=== PATIENT | female | born 1935 | race African-American/Black ===

== ENCOUNTER 2018-03-14 18:44 | Inpatient (IN) | payer OTHER ==
[~2018-03-14] VITALS: Ht 165.1 cm; Wt 57.9 kg
--- NOTE | ~2018-03-14 | EKG ---
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 : 1935 Requested By: Hector Giordano Order Number: [id number] MD: Jimenez Sheehan Measurements Intervals [place] Rate: 76 P: 44 WI: 63 QRS: -7 QRSD: 104 T: 40 QT: 394 QTc: 444 Interpretive Statements Sinus rhythm Atrial premature complex Early R-wave progression Compared to ECG 05/19/2016 09:40:37 Atrial premature complex(es) now present Electronically Signed On 03-16-2018 15:25:08 CDT by Jimenez Sheehan [email or web address] <ELECTRONICALLY SIGNED> By: Jimenez Sheehan MD, [facility] 03/16/18 1525 1924 1924 Jimenez Sheehan MD, [facility] /EPI
--- NOTE | ~2018-03-14 | 2DMMODE ---
[facility] [address] [place] [address] 2 D/M-MODE ECHOCARDIOGRAM Name: BEN DOYLE Room #: 218-P [facility] IN .R.#: [id number] Admission: 03/14/18 Attend Phys: Noa Lal MD Discharge: Date of : 37 Date of Service: 03/17/18 1248 Report #: [id number] THIS REPORT FOR: //name// APPROVED REPORT Study performed: 03/17/2018 11:24:23 EXAM: Comprehensive 2D, Doppler, and color-flow Echocardiogram Patient Location: Bedside Room #: 218 Status: routine BSA: 1.63 HR: 47 bpm BP: 159/85 mmHg Other Information Study Quality: Adequate Technically limited study due to inability to position patient. Indications CVA/TIA Hypertension/HDD Echo Enhancing Agent Indication: Rule out Shunt Agent(s) / Amount(s) Used: Agitated Saline 6 cc 2D Dimensions RVDd: 30.31 mm LVEF(%): 63.32 (>50%) IVSd: 11.80 (7-11mm) LVOT Diam: 17.38 (18-24mm) LVDd: 35.96 mm PWd: 11.91 (7-11mm) Ascending Ao: 25.94 (22-36mm) LVDs: 23.88 (25-40mm) Aortic Root: 24.67 mm IVC: 20.00 mm García's LVEF: 63.32 % Volumes Left Atrial Volume (Systole) Single Plane 4CH: 46.27 mL Single Plane 2CH: 28.73 mL LA ESV Index: 23.00 mL/m2 Aortic Valve AoV Peak Hussein.: 1.75 m/s AO Peak Gr.: 12.24 mmHg LVOT Max P.74 mmHg [facility] [place] [address] 2 D/M-MODE ECHOCARDIOGRAM Name: BEN DOYLE Room #: 218-P [facility] IN M.R.#: [id number] Admission: 03/14/18 Attend Phys: Noa Lal MD Discharge: Date of : 37 Date of Service: 03/17/18 1248 Report #: [id number] LVOT Max V: 1.09 m/s SHILO Vmax: 1.48 cm2 Mitral Valve E/A Ratio: 0.8 MV Decel. Time: 355.16 ms MV E Max Hussein.: 0.58 m/s MV A Hussein.: 0.73 m/s MV PHT: 103.00 ms IVRT: 119.95 ms Pulmonary Valve PV Peak Hussein.: 1.15 m/s PV Peak Gr.: 5.33 mmHg Pulmonary Vein P Vein S: 0.48 m/s P Vein A: 0.29 m/s P Vein D: 0.25 m/s P Vein A Dur.: 124.6 msec P Vein S/D Ratio: 1.92 Tricuspid Valve TR Peak Hussein.: 2.42 m/s RAP Estimate: 5.00 mmHg TR Peak Gr.: 23.35 mmHg PA Pressure: 28.00 mmHg Left Ventricle The left ventricle is normal size. There is normal LV segmental wall motion. Mild concentric left ventricular hypertrophy. The left ventricular systolic function is normal. The left ventricular ejection fraction is within the normal range. LVEF is 55-60%. Mild diastolic dysfunction is present (impaired relaxation pattern). Right Ventricle The right ventricle is normal size. The right ventricular systolic function is normal. Atria The left atrium size is normal. No shunting by contrast bubble injection. The right atrium size is normal. Aortic Valve The aortic valve is normal in structure. No aortic regurgitation is present. There is no aortic valvular stenosis. Mitral Valve The mitral valve is normal in structure. Mild mitral regurgitation. [facility] [address] [place] [address] 2 D/M-MODE ECHOCARDIOGRAM Name: BEN DOYLE Room #: 218-P [facility] IN ..#: [id number] Admission: 03/14/18 Attend Phys: Noa Lal MD Discharge: Date of : 37 Date of Service: 03/17/18 1248 Report #: [id number] No evidence of mitral valve stenosis. Tricuspid Valve The tricuspid valve is normal in structure. Mild tricuspid regurgitation. PAP is estimated at 28 mmHg. Pulmonic Valve Pulmonic valve is not well visualized. Great Vessels The aortic root is normal in size. IVC is normal in size and collapses >50% with inspiration. Pericardium There is no pericardial effusion. <Conclusion> The left ventricular systolic function is normal. There is normal LV segmental wall motion. LVEF is 55-60%. Mild diastolic dysfunction No shunting by contrast bubble injection. The aortic valve is normal in structure. No aortic regurgitation or stenosis. The mitral valve is normal in structure. Mild mitral regurgitation. Mild tricuspid regurgitation. Pulomonary artery pressure of 28 mmHg. There is no pericardial effusion. <ELECTRONICALLY SIGNED> By: Jimenez Sheehan MD, FACC 03/17/18 1248 47 Jimenez Sheehan MD, FACC /INF
--- NOTE | ~2018-03-14 | EKG ---
[address] [address] ELECTROCARDIOGRAM REPORT Name: YANIRABEN SONG Valentin Room #: 218-P ADM IN M.R.#: [id number] Admission: 03/14/18 Attend Phys: Noa Lal MD Discharge: Date of : 37 Report #: [id number] THIS REPORT FOR: //name// [facility] Test Date: 2018-03-17 Test Time: 09:55:48 Pat Name: BEN DOYLE Department: Room: 218 P Gender: F Division Head: Karely LIU : 1935 Requested By: Wilver Vences Order Number: [id number] MD: Measurements Intervals [place] Rate: 61 P: 26 MT: 209 QRS: 19 QRSD: 97 T: 106 QT: 463 QTc: 467 Interpretive Statements Sinus rhythm Abnormal R-wave progression, early transition Abnormal T, consider ischemia, lateral leads Compared to ECG 03/14/2018 19:24:36 T-wave abnormality now present Possible ischemia now present Atrial premature complex(es) no longer present [email or web address] By: [id number] Epiphany Epiphany, /EPI
[~2018-03-14 18:44] MED LIST: ASPIRIN325 PO; CALCIUM + VIT1 EACH; DIOVAN; ETODOLAC200 MG PO; HYDRALAZINE 2525 MG PO; HYDRALAZINE20 MG/M1 IV PUSH; HYDROCODONE-AP1 EAC6 PO; INDERAL XL120 MG PO; IRON325 PO; KLOR-CON 1010 MEQ PO; LIDODERM 5%1 PATCH TOP; LIPITOR10 MG PO; MOBIC7.5 MG PO; NIFEDIPINE; PROCARDIA XL90 MG PO; TESSALON PERLE100 MG PO; TRAMADOL 50 MG50 MG PO; VALSARTAN-HCTZ1 EAC1 PO; VITAMIN D2000 UNIT PO; ZOCOR20 MG PO
[2018-03-14 18:45] VITALS: BP 189/95
[2018-03-14 19:34] LABS: HEMATOCRIT 44.8 % (37.0-47.0); HEMOGLOBIN 15.2 gm/dL (12.0-15.0); MCH 28.1 pg (26.0-34.0); MCV 82.6 fL (80.0-100.0); PLATELET COUNT 236 thou/uL (150-400); RBC 5.42 mil/uL (4.20-5.00); WBC 8.9 thou/uL (4.0-11.0)
[2018-03-14 19:40] LABS: CALCIUM 10.8 mg/dL (8.5-10.1); CREATININE 1.2 mg/dL (0.6-1.0); POTASSIUM 3.3 mmol/L (3.5-5.1)
[2018-03-14 19:50] LABS: TROPONIN-I 1.35 ng/mL (<0.06)
[2018-03-14 19:51] LABS: ANISOCYTOSIS SLIGHT; PLATELET ESTIMATE NORMAL
[2018-03-14 20:16] LABS: APTT 27.7 Seconds (24.5-32.8); PROTIME 10.7 Seconds (9.3-11.4)
[2018-03-14] MEDS ORDERED: HYDROCHLOROTHIA25 M2 PO (20:59)
[2018-03-14] MEDS ORDERED: COZAAR 25 MG TA25 M1 PO (20:59)
[2018-03-14 21:46] VITALS: BP 155/98
[2018-03-14 23:25] VITALS: BP 140/90
[2018-03-15 01:50] LABS: HEMATOCRIT 45.1 % (37.0-47.0); MCH 27.9 pg (26.0-34.0); MCHC 33.2 g/dL (28.0-37.0); RBC 5.38 mil/uL (4.20-5.00); RDW 15.4 % (10.5-14.5); WBC 7.7 thou/uL (4.0-11.0)
[2018-03-15 02:00] LABS: CHOLESTEROL 239 mg/dL (<200); HDL CHOLESTEROL 76 mg/dL (>40); LDL CHOLESTEROL 154 mg/dL (<100); TC:HDL 3.1 Ratio (Not establshd); TRIGLYCERIDE 47 mg/dL (<150); VLDL 9 mg/dL (<40)
[2018-03-15 02:01] LABS: CALCIUM 10.3 mg/dL (8.5-10.1); POTASSIUM 3.4 mmol/L (3.5-5.1); TOTAL BILIRUBIN 0.5 mg/dL (<0.1-1.0); TOTAL PROTEIN 7.7 g/dL (6.4-8.2)
[2018-03-15 02:13] LABS: SERUM ASSESSMENT Clear
[2018-03-15 05:49] VITALS: BP 148/97
[2018-03-15 08:59] VITALS: BP 146/100
[2018-03-15 12:10] VITALS: BP 181/90
[2018-03-15 17:06] LABS: GLYCOHEMOGLOBIN (HGB A1C) 5.8 % (4.8-5.6)
[2018-03-15 17:38] VITALS: BP 160/104
[2018-03-15 19:59] VITALS: BP 151/86
[2018-03-16 04:44] VITALS: BP 167/98
[2018-03-16 07:54] VITALS: BP 180/96
[2018-03-16 12:02] VITALS: BP 149/92
[2018-03-16 19:05] VITALS: BP 133/79
[2018-03-17 05:10] VITALS: BP 140/85
[2018-03-17 08:25] VITALS: BP 159/85
[2018-03-17 12:32] VITALS: BP 157/90
[2018-03-17] MEDS ORDERED: LIPITOR 20 MG T20 M1 PO (16:55)
[2018-03-17] MEDS ORDERED: ACETAMINOPHEN650 MG RECTAL (16:55)
[2018-03-17] MEDS ORDERED: PROTONIX40 M1 PO (16:55)
[2018-03-17] MEDS ORDERED: ELIQUIS2.5 MG PO (16:55)
[2018-03-17] MEDS ORDERED: COLACE100 MG PO (16:55)
[2018-03-17] MEDS ORDERED: ZOLOFT25 MG PO (16:55)
== END 2018-03-17 18:00 | DRG 65 ==
LOC: ER 18:44 → 2N 20:28 → EROBS 20:28 → 2N 22:54
PROVIDERS: Nurse Practitioner Family; Physician Assistant
DX: I63.9 Cerebral infarction, unspecified (principal); G81.94 Hemiplegia, unspecified affecting left nondominant side; R29.810 Facial weakness; I10 Essential (primary) hypertension; R47.81 Slurred speech; R13.10 Dysphagia, unspecified; E87.6 Hypokalemia; D64.9 Anemia, unspecified; E11.9 Type 2 diabetes mellitus without complications; I48.91 Unspecified atrial fibrillation; E78.5 Hyperlipidemia, unspecified; G89.29 Other chronic pain; M54.9 Dorsalgia, unspecified; W18.39XA Other fall on same level, initial encounter; Z88.6 Allergy status to analgesic agent; Z88.1 Allergy status to other antibiotic agents; Z88.2 Allergy status to sulfonamides; Z86.73 Personal history of transient ischemic attack (TIA), and cerebral infarction without residual deficits; Z79.82 Long term (current) use of aspirin; Z79.4 Long term (current) use of insulin; Z79.899 Other long term (current) drug therapy; Y93.89 Activity, other specified; Y92.89 Other specified places as the place of occurrence of the external cause; Y99.8 Other external cause status; Z79.01 Long term (current) use of anticoagulants; Z82.49 Family history of ischemic heart disease and other diseases of the circulatory system; Z83.49 Family history of other endocrine, nutritional and metabolic diseases
CPT/HCPCS: 10081

== ENCOUNTER 2018-04-19 06:11 | Inpatient (IN) | payer OTHER ==
[~2018-04-19] VITALS: Ht 165.1 cm; Wt 66.7 kg
--- NOTE | ~2018-04-19 | EKG ---
[address] [place] [address] ELECTROCARDIOGRAM REPORT Name: BEN DOYLE Room #: 424-P ADM IN M.R.#: [id number] Admission: 04/19/18 Attend Phys: Power Lucero MD Discharge: Date of : 37 Report #: [id number] THIS REPORT FOR: //name// 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 : 1935 Requested By: Tonia Lebron Order Number: [id number] MD: Rickey Puentes Measurements Intervals [place] Rate: 65 P: 42 SC: 194 QRS: 0 QRSD: 111 T: 82 QT: 431 QTc: 449 Interpretive Statements Sinus rhythm Multiple premature complexes, vent & supraven Abnormal R-wave progression, early transition Compared to ECG 03/31/2018 08:38:13 Electronically Signed On 04-25-2018 14:18:26 CDT by Rickey Puentes [email or web address] <ELECTRONICALLY SIGNED> By: Rickey Puentes MD 04/25/18 1418 6 08 Rickey Puentes MD /SANG
--- NOTE | ~2018-04-19 | HC ---
[facility] [place] [address] CONSULTATION Name: BEN DOYLE Room #: 424-P ADM IN M.R.#: [id number] Admission: 04/19/18 Attend Phys: oPwer Lucero MD Discharge: Date of : 37 Report #: [id number] THIS REPORT FOR: //name// CC: ROLAN physician/PCP Power Lucero DATE OF SERVICE: 04/20/2018 HISTORY OF PRESENT ILLNESS: This is an 82-year-old female patient who was evaluated by me for dizziness. She has some history of hallucination, agitation and I reviewed the patient's admission history and physical examination. This patient has been here before. She was seen by Dr. Chan in the past who is a neurologist. She could not have an MRI either because of her stimulator or something other metal in the shoulder, but they have done a CT scan of the head in this patient and that showed chronic changes. She did have a CTA of the head and neck at one time and that showed no definite abnormality, which can explain the patient's symptom. She had deteriorated when she was here the last time, looks like she must have had stroke-like symptom in 2016 also because that time also this patient had a CT angio and perfusion. This patient had some temporary worsening for the stroke. REVIEW OF SYSTEMS: I carried out the 14-point review of system in this patient, looks like the patient is admitted with hallucination. She has a chronic back pain and a stimulator. Fourteen-point review of systems also indicates she has a rotator cuff problem. She has a history of hypertension. She has a history of encephalopathy and has a history of CVA. She has a history of hallucination. I do not know what her back around mental status is, but I suspect is impaired with all the prior strokes. This is a relevant 14-point review of system. PAST MEDICAL HISTORY: Positive for stroke. FAMILY HISTORY: Negative for early age stroke. SOCIAL HISTORY: She states she does not smoke or drink any alcohol. PHYSICAL EXAMINATION: NEUROLOGICAL: Limited. She is alert. She is responsive. She can follow commands. Her speech looks unremarkable. It is difficult to tell what her memory and fund of knowledge is because I do not know her baseline. Cranial nerve examination 2 through 12 indicate an obvious left facial palsy. Neuromuscular examinations indicate that she has weakness on the left side and that is pretty profound and this is since the stroke. She states she has a sensation there, but she has pinprick sensation there. Tone is altered consistent with CVA. There is no thyroid mass. HEENT: his hearing and vision looks adequate. RESPIRATORY: Unremarkable. [address] [address] CONSULTATION Name: BEN DOYLE Room #: [facility] IN M.R.#: [id number] Admission: 04/19/18 Attend Phys: Power Lucero MD Discharge: Date of : 37 Report #: [id number] VITAL SIGNS: Her blood pressure is 182/107, pulse is 72 and temperature is 98.7. LABORATORY DATA: Indicate sodium of 141. At one time, she did have a TSH and it was normal. Her B12 was normal. RADIOLOGICAL DATA: She did have a CT scan of the head that does not show any acute abnormality. IMPRESSION: This patient is admitted with hallucination. Her workup is difficult. This is because her family does not think MRI can be done and she already had a CT angio. 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 I will suggest psychiatric consult in this patient if she has a documented hallucination. RECOMMENDATIONS: 1. EEG. 2. I will suggest considering a psychiatric consult if these were hallucination. 3. I will discuss this with you before proceeding further and also try to talk to the family. Thank you very much for this referral and if you have any question, please feel free to contact me. <ELECTRONICALLY SIGNED> By: Chema Murphy MD 04/24/18 0851 1835 [id number] Chema Murphy MD /nt
--- NOTE | ~2018-04-19 | EEG ---
[facility] [place] [address] [place] [address] ELECTROENCEPHALOGRAM Name: BEN DOYLE Room #: 424-P ADM IN M.R.#: [id number] Admission: 04/19/18 Attend Phys: Power Lucero MD Discharge: Date of : 37 Report #: [id number] THIS REPORT FOR: //name// CC: FAM physician/PCP Power Lucero DATE OF SERVICE: 04/21/2018 This patient is being evaluated for hallucinations. EEG was done by placing the electrodes by standard 10-20 system of electrode placement. Both referential and sequential montages were used for recording. Background activity in this patient's EEG is about 11 Hz and 40 microvolt. The patient became drowsy that is associated with bilateral slowing. Photic stimulation was unremarkable. Throughout the record, no active epileptiform activity was noticed. IMPRESSION: This patient's EEG is unremarkable. Thank you very much for this referral. <ELECTRONICALLY SIGNED> By: Chema Murphy MD 04/24/18 0853 1333 1411 Chema Murphy MD /nt
[~2018-04-19 06:11] MED LIST changes: +ACETAMINOPHEN650 MG RECTAL; +CEFUROXIME250 MG PO; +COLACE100 MG PO; +COZAAR 25 MG TA25 M1 PO; +COZAAR 25 MG TA25 M2 PO; +ELIQUIS2.5 MG PO; +FLOMAX0.4 MG PO; +HYDROCHLOROTHIA25 M2 PO; +HYDROCORTISONE30 G9 TOP; +LIPITOR 20 MG T20 M1 PO; +MELATONIN5 M1 PO; +PHENAZOPYRIDIN100 M1 PO; +PROTONIX40 M1 PO; +TRAZODONE HCL50 MG PO; +ZOLOFT25 MG PO
[2018-04-19 06:14] VITALS: BP 205/85
[2018-04-19 07:43] LABS: ABSOLUTE NEUTROPHILS 7.9 thou/uL (1.4-8.2); BASOPHILS 0.8 % (0.0-2.0); EOSINOPHILS 1.3 % (0.0-3.0); HEMATOCRIT 44.7 % (37.0-47.0); LYMPHOCYTES 11.8 % (24.0-44.0); MCHC 33.5 g/dL (28.0-37.0); MCV 83.7 fL (80.0-100.0); MONOCYTES 8.2 % (1.0-8.0); PLATELET COUNT 260 thou/uL (150-400); POLYS 77.9 % (36.0-66.0); RBC 5.34 mil/uL (4.20-5.00); RDW 15.1 % (10.5-14.5); WBC 10.1 thou/uL (4.0-11.0)
[2018-04-19 09:03] LABS: URINE BILIRUBIN NEGATIVE (Negative); URINE BLOOD 3+ (Negative); URINE CLARITY TURBID; URINE GLUCOSE-RANDOM* NEGATIVE (Negative); URINE KETONES TRACE (Negative); URINE PROTEIN (DIPSTICK) 1+ (Negative); URINE UROBILINOGEN 0.2 E.U./dl (0.2-1.0)
[2018-04-19 09:06] LABS: URINE LEUKOCYTES-REFLEX 3+ (Negative); URINE NITRITE-REFLEX POSITIVE (Negative)
[2018-04-19 09:07] LABS: URINE COLOR PINK
[2018-04-19 09:10] LABS: CASTS None Seen /LPF (None Seen); CRYSTALS None Seen /LPF (None Seen); SQUAMOUS 0-3 Few /LPF (0-3); URINE RBC 0-2 Rare /HPF (0-2); URINE WBC-REFLEX >25 Many /HPF (0-5)
[2018-04-19 09:11] LABS: BACTERIA-REFLEX 1-9 Few /HPF (None Seen); MUCUS >6 Heavy strn/LPF (None Seen)
[2018-04-19 10:26] VITALS: BP 163/86; BP 205/85
[2018-04-19 10:31] LABS: CALCIUM 10.6 mg/dL (8.5-10.1); CREATININE 0.9 mg/dL (0.6-1.0); POTASSIUM 3.7 mmol/L (3.5-5.1)
[2018-04-19 11:46] LABS: ALBUMIN 3.7 g/dL (3.4-5.0); ANION GAP 14 mmol/L (7-16); BUN 8 mg/dL (7-18); CALCIUM 10.7 mg/dL (8.5-10.1); CHLORIDE 100 mmol/L (98-107); CO2 26 mmol/L (21-32); CREATININE 0.9 mg/dL (0.6-1.0); GLUCOSE 126 mg/dL (74-106); SGOT 18 U/L (15-37); SGPT 18 U/L (30-65); SODIUM 140 mmol/L (136-145); TOTAL BILIRUBIN 0.4 mg/dL (<0.1-1.0); TOTAL PROTEIN 7.6 g/dL (6.4-8.2); TROPONIN-I <0.06 ng/mL (<0.06)
[2018-04-19 12:20] VITALS: BP 161/88
[2018-04-19 20:10] VITALS: BP 180/75
[2018-04-20 00:15] VITALS: BP 152/74
[2018-04-20 04:30] VITALS: BP 188/85
[2018-04-20 06:21] LABS: HEMOGLOBIN 13.6 gm/dL (12.0-15.0); MCH 27.7 pg (26.0-34.0); MCHC 33.2 g/dL (28.0-37.0); MCV 83.6 fL (80.0-100.0); RBC 4.91 mil/uL (4.20-5.00); WBC 5.6 thou/uL (4.0-11.0)
[2018-04-20 06:34] LABS: CALCIUM 9.5 mg/dL (8.5-10.1); CREATININE 0.9 mg/dL (0.6-1.0); POTASSIUM 3.4 mmol/L (3.5-5.1)
[2018-04-20 07:46] VITALS: BP 153/81
[2018-04-20] MEDS ORDERED: TYLENOL325 MG PO (14:54)
[2018-04-20 15:55] VITALS: BP 185/99
[2018-04-20 15:56] VITALS: BP 158/111; BP 182/107
[2018-04-20 19:53] VITALS: BP 160/63
[2018-04-21 04:34] VITALS: BP 153/82
[2018-04-21 07:12] LABS: ABSOLUTE NEUTROPHILS 3.2 thou/uL (1.4-8.2); BASOPHILS 1.1 % (0.0-2.0); HEMOGLOBIN 12.9 gm/dL (12.0-15.0); LYMPHOCYTES 25.5 % (24.0-44.0); MCH 27.7 pg (26.0-34.0); MCV 83.9 fL (80.0-100.0); MONOCYTES 11.9 % (1.0-8.0); PLATELET COUNT 231 thou/uL (150-400); POLYS 58.5 % (36.0-66.0); RBC 4.65 mil/uL (4.20-5.00); RDW 15.2 % (10.5-14.5); WBC 5.4 thou/uL (4.0-11.0)
[2018-04-21 07:21] LABS: CALCIUM 9.2 mg/dL (8.5-10.1); CREATININE 0.9 mg/dL (0.6-1.0); POTASSIUM 3.3 mmol/L (3.5-5.1)
[2018-04-21 08:35] VITALS: BP 141/57
[2018-04-21 09:39] VITALS: BP 141/57
[2018-04-21 19:37] VITALS: BP 146/84
[2018-04-22 03:46] VITALS: BP 182/76
[2018-04-22 06:28] LABS: HEMATOCRIT 38.3 % (37.0-47.0); HEMOGLOBIN 12.7 gm/dL (12.0-15.0); MCH 27.7 pg (26.0-34.0); MCHC 33.1 g/dL (28.0-37.0); MCV 83.8 fL (80.0-100.0); PLATELET COUNT 221 thou/uL (150-400); RBC 4.57 mil/uL (4.20-5.00); RDW 15.1 % (10.5-14.5); WBC 3.9 thou/uL (4.0-11.0)
[2018-04-22 06:48] LABS: CALCIUM 9.3 mg/dL (8.5-10.1); CREATININE 0.8 mg/dL (0.6-1.0); POTASSIUM 3.4 mmol/L (3.5-5.1)
[2018-04-22 07:30] LABS: ABSOLUTE NEUTROPHILS 1.4 thou/uL (1.4-8.2); ATYPICAL LYMPHS 2 %
[2018-04-22 07:31] LABS: ANISOCYTOSIS 1+
[2018-04-22 07:40] VITALS: BP 176/94
[2018-04-22 16:00] VITALS: BP 182/88
[2018-04-22 19:10] VITALS: BP 180/86
[2018-04-23 04:15] VITALS: BP 162/90
[2018-04-23 06:25] LABS: HEMATOCRIT 42.1 % (37.0-47.0); HEMOGLOBIN 14.1 gm/dL (12.0-15.0); MCH 27.9 pg (26.0-34.0); MCHC 33.4 g/dL (28.0-37.0); MCV 83.6 fL (80.0-100.0); PLATELET COUNT 252 thou/uL (150-400); RBC 5.03 mil/uL (4.20-5.00); RDW 15.1 % (10.5-14.5); WBC 4.8 thou/uL (4.0-11.0)
[2018-04-23 06:47] LABS: CALCIUM 9.8 mg/dL (8.5-10.1); CREATININE 0.7 mg/dL (0.6-1.0); MAGNESIUM 1.8 mg/dL (1.8-2.4); POTASSIUM 3.6 mmol/L (3.5-5.1)
[2018-04-23 07:59] LABS: ABSOLUTE NEUTROPHILS 2.5 thou/uL (1.4-8.2)
[2018-04-23 08:00] VITALS: BP 175/75
[2018-04-23 08:00] LABS: ANISOCYTOSIS SLIGHT
[2018-04-23 11:06] LABS: URINE BILIRUBIN NEGATIVE (Negative); URINE BLOOD 1+ (Negative); URINE CLARITY SL CLOUDY; URINE COLOR YELLOW; URINE GLUCOSE-RANDOM* NEGATIVE (Negative); URINE KETONES 1+ (Negative); URINE NITRITE-REFLEX NEGATIVE (Negative); URINE PROTEIN (DIPSTICK) NEGATIVE (Negative); URINE UROBILINOGEN 0.2 E.U./dl (0.2-1.0)
[2018-04-23 11:10] LABS: URINE LEUKOCYTES-REFLEX 1+ (Negative)
[2018-04-23 11:20] LABS: CASTS None Seen /LPF (None Seen); CRYSTALS None Seen /LPF (None Seen); SQUAMOUS 4-10 Moderate /LPF (0-3); URINE WBC-REFLEX >25 Many /HPF (0-5)
[2018-04-23 11:21] LABS: URINE RBC 3-10 Few /HPF (0-2)
[2018-04-23] MEDS ORDERED: ANTIVERT25 MG PO (13:10)
[2018-04-23] MEDS ORDERED: CEFPODOXIME PR100 MG PO (13:10)
[2018-04-23 15:44] VITALS: BP 142/64
[2018-04-23 19:10] VITALS: BP 143/90
[2018-04-24 04:57] VITALS: BP 156/71
[2018-04-24 09:20] VITALS: BP 140/86
[2018-04-24 20:00] VITALS: BP 140/83
[2018-04-25 04:30] VITALS: BP 154/85
[2018-04-25 08:18] VITALS: BP 150/73
[2018-04-25 14:36] VITALS: BP 167/63
[2018-04-25] MEDS ORDERED: ACIDOPHILUS1 EAC3 PO (16:03)
[2018-04-25 16:07] VITALS: BP 167/63
[2018-04-25] MEDS ORDERED: [UNRECOGNIZED DRUG - OTHER] (16:19)
[2018-04-25] MEDS ORDERED: HOSPITAL BED MISCELL (16:19)
[2018-04-25 19:40] VITALS: BP 158/67
[2018-04-26 06:20] VITALS: BP 176/83
[2018-04-26 08:00] VITALS: BP 154/80
[2018-04-26] MEDS ORDERED: LEVAQUIN 500 M500 M2 PO (12:56)
== END 2018-04-26 16:25 | disposition home health service (06) | DRG 70 ==
LOC: ER 06:11 → EROBS 10:20 → 4E 10:20
PROVIDERS: Hospitalist; Nurse Practitioner Family; Student in an Organized Health Care Education/Training Program
DX: G93.40 Encephalopathy, unspecified (principal); E43 Unspecified severe protein-calorie malnutrition; N39.0 Urinary tract infection, site not specified; F01.51 Vascular dementia, unspecified severity, with behavioral disturbance; R44.3 Hallucinations, unspecified; I10 Essential (primary) hypertension; G89.29 Other chronic pain; M54.9 Dorsalgia, unspecified; E11.9 Type 2 diabetes mellitus without complications; I48.0 Paroxysmal atrial fibrillation; M62.84 Sarcopenia; E87.6 Hypokalemia; R41.0 Disorientation, unspecified; F32.9 Major depressive disorder, single episode, unspecified; Z79.899 Other long term (current) drug therapy; Z88.6 Allergy status to analgesic agent; Z88.2 Allergy status to sulfonamides; Z88.8 Allergy status to other drugs, medicaments and biological substances; Z90.49 Acquired absence of other specified parts of digestive tract
CPT/HCPCS: 10084